=== PATIENT | male | born 1970 | race Caucasian/White ===

== ENCOUNTER 2022-06-11 20:40 | Emergency (ER) | payer OTHER | END 2022-06-11 23:25 | disposition home or self-care (01) | LOC: CSHERS 20:40 | DX: M70.52 Other bursitis of knee, left knee (principal) ==

== ENCOUNTER 2023-07-19 15:50 | Outpatient (CLI) | payer BC | END 2023-07-19 15:51 | disposition home or self-care (01) | LOC: CSHCT 15:50 | PROVIDERS: ATTEND Nurse Practitioner Family | DX: Z12.2 Encounter for screening for malignant neoplasm of respiratory organs (principal); Z87.891 Personal history of nicotine dependence; R91.8 Other nonspecific abnormal finding of lung field | CPT/HCPCS: 71271 ==

== ENCOUNTER 2024-09-23 12:50 | Outpatient (CLI) | payer BC | END 2024-09-23 12:51 | disposition home or self-care (01) | LOC: CSHCT 12:50 | PROVIDERS: ATTEND Nurse Practitioner Family | DX: Z12.2 Encounter for screening for malignant neoplasm of respiratory organs (principal); Z87.891 Personal history of nicotine dependence; N50.812 Left testicular pain; N50.3 Cyst of epididymis; N43.3 Hydrocele, unspecified | CPT/HCPCS: 71271; 76870 ==